=== PATIENT | female | born 1995 | race Two or more races ===

== ENCOUNTER 2020-06-11 22:21 | Emergency (ER) | payer MEDICAID ==
[~2020-06-11] VITALS: Ht 167.6 cm; Wt 78.5 kg
[2020-06-11 22:36] VITALS: BP 122/56
[2020-06-11 23:49] LABS: Albumin 3.8 g/dL (3.4-5.0); BUN/Creatinine Ratio 12.5; Calcium 8.8 mg/dL (8.5-10.1)
[2020-06-11 23:50] LABS: Bilirubin, Total 0.5 mg/dL (0.2-1.0); Total Protein 7.5 g/dL (6.4-8.2)
[2020-06-12 00:22] LABS: Basophils # (auto) 0.2 10 ^3/uL (0-0.2); Basophils % (auto) 1.5 % (0.0-2.0); Eosinophils # (auto) 0.1 10 ^3/uL (0-0.8); Eosinophils % (auto) 0.6 % (0.0-7.0); Hematocrit 27.1 % (36.0-46.0); Hemoglobin 7.6 g/dL (12.2-16.2); Lymphocytes # (auto) 1.6 10 ^3/uL (0.4-5.4); Lymphocytes % (auto) 14.3 % (10.0-50.0); Mean Corpuscular Hemoglobin 16.9 pg (28.0-32.0); Mean Corpuscular Volume 60.3 fL (80.0-100.0); Monocytes # (auto) 0.7 10 ^3/uL (0-1.3); Neutrophils # (auto) 8.6 10 ^3/uL (1.6-8.6); Neutrophils % (auto) 77.6 % (37.0-80.0); Nucleated Red Blood Cells % 0.1 %; Platelet Count (auto) 209 10^3/uL (140-450)
[2020-06-12 00:25] LABS: Red Cell Distribution Width 20.6 % (11.8-14.3)
== END 2020-06-12 01:32 | disposition home or self-care (01) ==
LOC: ER 22:29
DX: K29.70 Gastritis, unspecified, without bleeding (principal); D64.9 Anemia, unspecified
CPT/HCPCS: 36415; 80053; 83690; 85025

== ENCOUNTER 2021-01-01 02:52 | Emergency (ER) | payer MEDICAID ==
[~2021-01-01] VITALS: Ht 167.6 cm; Wt 69.9 kg
[2021-01-01 04:26] LABS: Basophils # (auto) 0 10 ^3/uL (0-0.2); Eosinophils # (auto) 0 10 ^3/uL (0-0.8); Lymphocytes # (auto) 1.1 10 ^3/uL (0.4-5.4); White Blood Cell 12.9 10^3/uL (4.4-10.8)
[2021-01-01 04:31] LABS: Basophils % (auto) 0.1 % (0.0-2.0); Eosinophils % (auto) 0.2 % (0.0-7.0); Hematocrit 38.5 % (36.0-46.0); Hemoglobin 12.3 g/dL (12.2-16.2); Lymphocytes % (auto) 8.2 % (10.0-50.0); Mean Corpuscular Hemoglobin 23.3 pg (28.0-32.0); Monocytes # (auto) 0.6 10 ^3/uL (0-1.3); Neutrophils # (auto) 11.2 10 ^3/uL (1.6-8.6); Neutrophils % (auto) 86.5 % (37.0-80.0); Red Blood Cells 5.27 10^6/uL (4.0-5.20); Red Cell Distribution Width 19.2 % (11.8-14.3)
[2021-01-01 04:33] LABS: Potassium 4.2 mmol/L (3.5-5.1)
[2021-01-01 04:36] LABS: Albumin 3.4 g/dL (3.4-5.0); BUN/Creatinine Ratio 12.8
[2021-01-01 04:38] LABS: Bilirubin, Total 0.6 mg/dL (0.2-1.0); Total Protein 7.5 g/dL (6.4-8.2)
[2021-01-01] MEDS ORDERED: IOHEXOL 300 MG/ML 100ML BOTTLE IJ ONE (06:45)
[2021-01-01 08:04] LABS: Urine Amorphous Crystal MOD /hpf (None Seen); Urine Bacteria NONE SEEN /hpf (None Seen); Urine Blood 3+ /uL (Negative); Urine Specific Gravity 1.023 (1.001-1.035); Urine WBC 34 /hpf (0 - 5)
[2021-01-01] MEDS ORDERED: cefTRIAXone 1GM/50ML D5W 50 ML IV ONE (10:15)
[2021-01-01] MEDS ORDERED: cefTRIAXone SOD 1,000 MG VL ONE (10:52)
[2021-01-01 11:08] VITALS: BP 127/84
== END 2021-01-01 14:39 | disposition home or self-care (01) ==
LOC: ER 02:52
DX: K80.20 Calculus of gallbladder without cholecystitis without obstruction (principal); N39.0 Urinary tract infection, site not specified; E46 Unspecified protein-calorie malnutrition; Z68.24 Body mass index [BMI] 24.0-24.9, adult
CPT/HCPCS: 36415; 74177; 76705; 80053; 81001; 81025; 82150; 83690; 84702; 85025; 96365; 96366; 99285; J0696; Q9967

== ENCOUNTER 2021-01-05 14:00 | Inpatient (IN) | payer MEDICAID ==
[~2021-01-05] VITALS: Ht 167.6 cm; Wt 75.0 kg
[2021-01-05 16:34] LABS: Basophils # (auto) 0.1 10 ^3/uL (0-0.2); Basophils % (auto) 0.5 % (0.0-2.0); Eosinophils # (auto) 0.1 10 ^3/uL (0-0.8); Hematocrit 44.1 % (36.0-46.0); Hemoglobin 13.8 g/dL (12.2-16.2); Lymphocytes % (auto) 8.4 % (10.0-50.0); Mean Corpuscular Hemoglobin 22.9 pg (28.0-32.0); Mean Corpuscular Hgb Conc. 31.3 g/dL (32.0-36.0); Mean Corpuscular Volume 73.3 fL (80.0-100.0); Monocytes # (auto) 0.6 10 ^3/uL (0-1.3); Monocytes % (auto) 5.2 % (0.0-12.0); Neutrophils # (auto) 10.3 10 ^3/uL (1.6-8.6); Neutrophils % (auto) 84.9 % (37.0-80.0); Nucleated Red Blood Cells % 0.1 %; Red Blood Cells 6.01 10^6/uL (4.0-5.20); Red Cell Distribution Width 18.6 % (11.8-14.3); White Blood Cell 12.1 10^3/uL (4.4-10.8)
[2021-01-05 16:53] LABS: Albumin 3.8 g/dL (3.4-5.0); Calcium 10.4 mg/dL (8.5-10.1); Potassium 4.8 mmol/L (3.5-5.1)
[2021-01-05 16:56] LABS: BUN/Creatinine Ratio 4.1; Bilirubin, Total 3.1 mg/dL (0.2-1.0)
[2021-01-05] MEDS ORDERED: SODIUM CHLORIDE 0.9% 1,000 ML IV ONE (19:15)
[2021-01-05] MEDS ORDERED: metroNIDAZOLE 500MG/100ML 100 ML IV ONE (19:15)
[2021-01-05] MEDS ORDERED: CIPROFLOXACIN 400MG/200ML 200 ML IV ONE (19:15)
[2021-01-05] MEDS ORDERED: ONDANSETRON HCL 4 MG/2 ML VIAL IV ONE (20:00)
[2021-01-05] MEDS ORDERED: fentaNYL CITRATE 100 MCG/2 ML VL IV ONE (20:00)
[2021-01-05] MEDS ORDERED: ACETAMINOPHEN 325 MG TAB PO PRN (21:00)
[2021-01-05] MEDS ORDERED: MORPHINE SULFATE INJECTION 2 MG/ML SYRG IV PRN (23:00)
[2021-01-05] MEDS ORDERED: NITROGLYCERIN 0.4 MG SL TAB SL PRN (23:00)
[2021-01-05 23:06] LABS: Urine Bacteria FEW /hpf (None Seen); Urine Blood Negative /uL (Negative); Urine Specific Gravity 1.008 (1.001-1.035); Urine WBC 13 /hpf (0 - 5)
[2021-01-06 02:25] VITALS: BP 113/78
[2021-01-06] MEDS: metroNIDAZOLE 500MG/100ML 100 ML IV SCH ×4 (02:47→21:15)
[2021-01-06] MEDS: D5W/SOD CHLO 0.9% 1,000 ML IV SCH ×2 (02:47→13:07)
[2021-01-06] MEDS: MORPHINE SULFATE 4 MG/ML SYR/VIAL IV PRN ×2 (04:14→08:43)
[2021-01-06] MEDS ORDERED: CHOL20007 PO (04:40)
[2021-01-06] MEDS ORDERED: FERR27TA2 PO (04:40)
[2021-01-06 05:00] VITALS: BP 101/64
[2021-01-06 06:39] LABS: Basophils # (auto) 0 10 ^3/uL (0-0.2); Basophils % (auto) 0.2 % (0.0-2.0); Eosinophils # (auto) 0.1 10 ^3/uL (0-0.8); Hematocrit 37.6 % (36.0-46.0); Lymphocytes # (auto) 1.3 10 ^3/uL (0.4-5.4); Lymphocytes % (auto) 12.8 % (10.0-50.0); Mean Corpuscular Hemoglobin 23.3 pg (28.0-32.0); Mean Corpuscular Volume 73.1 fL (80.0-100.0); Monocytes # (auto) 0.9 10 ^3/uL (0-1.3); Monocytes % (auto) 9.2 % (0.0-12.0); Neutrophils # (auto) 7.7 10 ^3/uL (1.6-8.6); Neutrophils % (auto) 76.8 % (37.0-80.0); Red Blood Cells 5.14 10^6/uL (4.0-5.20); Red Cell Distribution Width 18.3 % (11.8-14.3); White Blood Cell 10.1 10^3/uL (4.4-10.8)
[2021-01-06 06:51] LABS: Albumin 2.9 g/dL (3.4-5.0); Calcium 10.1 mg/dL (8.5-10.1); Potassium 4.1 mmol/L (3.5-5.1)
[2021-01-06 06:55] LABS: BUN/Creatinine Ratio 5.4; Bilirubin, Total 2.9 mg/dL (0.2-1.0); Total Protein 6.3 g/dL (6.4-8.2)
[2021-01-06] MEDS: FAMOTIDINE (10MG/ML) 2ML VL IV SCH (08:42)
[2021-01-06 08:52] VITALS: BP 109/67
[2021-01-06] MEDS: MORPHINE SULFATE INJECTION 2 MG/ML SYRG IV PRN ×3 (13:08→22:34)
[2021-01-06 13:23] VITALS: BP 125/81
[2021-01-06] MEDS: ONDANSETRON HCL 4 MG/2 ML VIAL IV PRN ×3 (13:24→22:34)
[2021-01-06 16:55] VITALS: BP 124/73
[2021-01-06 18:14] LABS: INR 0.99 (0.9-1.15); Partial Thromboplastin Time 24.2 sec (23.6-33.0)
[2021-01-06 22:25] VITALS: BP 103/67
[2021-01-07] MEDS: ONDANSETRON HCL 4 MG/2 ML VIAL IV PRN ×3 (02:40→15:51)
[2021-01-07] MEDS: MORPHINE SULFATE INJECTION 2 MG/ML SYRG IV PRN ×4 (02:40→21:21)
[2021-01-07] MEDS: D5W/SOD CHLO 0.9% 1,000 ML IV SCH ×2 (02:40→13:00)
[2021-01-07 05:21] VITALS: BP 100/64
[2021-01-07] MEDS: metroNIDAZOLE 500MG/100ML 100 ML IV SCH ×3 (06:13→22:16)
[2021-01-07 07:18] LABS: Albumin 2.8 g/dL (3.4-5.0); BUN/Creatinine Ratio 6.9; Bilirubin, Total 1.4 mg/dL (0.2-1.0); Calcium 9.4 mg/dL (8.5-10.1); Total Protein 5.9 g/dL (6.4-8.2)
[2021-01-07 08:30] VITALS: BP 124/68
[2021-01-07] MEDS: FAMOTIDINE (10MG/ML) 2ML VL IV SCH (08:53)
[2021-01-07] MEDS ORDERED: MIDAZOLAM HCL 2MG/2ML 2ml VIAL (1mg/ml) ONE ×2 (09:19→11:50)
[2021-01-07] MEDS ORDERED: fentaNYL CITRATE 100 MCG/2 ML VL ONE ×2 (09:19→11:49)
[2021-01-07] MEDS ORDERED: LIDOCAINE 2%HCL (LOCAL ANESTH.) INJ 20ML MDV ONE ×2 (09:25→09:34)
[2021-01-07] MEDS ORDERED: IODIXANOL 320MG/ML 100ML BTL IV ONE (09:25)
[2021-01-07] MEDS ORDERED: KETOROLAC TROMETH 30 MG/ML 1ML VIAL IV ONE ×2 (10:00→12:00)
[2021-01-07] MEDS ORDERED: diphenhdrAMINE HCL 50 MG/1 ML VL ONE (11:01)
[2021-01-07] MEDS ORDERED: cefTRIAXone 1GM/50ML D5W 50 ML IV ONE (12:30)
[2021-01-07] MEDS ORDERED: HYDROmorphone HCL 2 MG/ML VL IV ONE (15:30)
[2021-01-07 16:30] VITALS: BP 116/75
[2021-01-07 22:00] VITALS: BP 114/69
[2021-01-07] MEDS: HYDROcodone-ACET 5/325MG TAB PO PRN (22:26)
[2021-01-08] MEDS: D5W/SOD CHLO 0.9% 1,000 ML IV SCH ×2 (03:06→15:40)
[2021-01-08] MEDS: MORPHINE SULFATE INJECTION 2 MG/ML SYRG IV PRN ×2 (03:06→08:59)
[2021-01-08 05:00] VITALS: BP 102/69
[2021-01-08] MEDS: metroNIDAZOLE 500MG/100ML 100 ML IV SCH ×3 (06:06→22:21)
[2021-01-08 06:33] LABS: Albumin 2.7 g/dL (3.4-5.0)
[2021-01-08 06:39] LABS: Bilirubin, Direct 1.3 mg/dL (0-0.2); Bilirubin, Total 1.8 mg/dL (0.2-1.0); Total Protein 5.9 g/dL (6.4-8.2)
[2021-01-08] MEDS: ONDANSETRON HCL 4 MG/2 ML VIAL IV PRN (08:57)
[2021-01-08 09:00] VITALS: BP 107/76
[2021-01-08] MEDS: FAMOTIDINE (10MG/ML) 2ML VL IV SCH (09:00)
[2021-01-08] MEDS: cefTRIAXone 1GM/50ML D5W 50 ML IV SCH (09:00)
[2021-01-08] MEDS ORDERED: IODIXANOL 320MG/ML 100ML BTL IV ONE ×2 (12:40)
[2021-01-08] MEDS ORDERED: LIDOCAINE 2%HCL (LOCAL ANESTH.) INJ 20ML MDV ONE ×2 (12:40→14:34)
[2021-01-08] MEDS ORDERED: MIDAZOLAM HCL 2MG/2ML 2ml VIAL (1mg/ml) ONE ×2 (12:41→15:09)
[2021-01-08] MEDS ORDERED: fentaNYL CITRATE 100 MCG/2 ML VL ONE (12:41)
[2021-01-08] MEDS ORDERED: HYDROmorphone HCL 2 MG/ML VL IV PRN (13:00)
[2021-01-08] MEDS ORDERED: HYDROmorphone HCL 2 MG/ML VL ONE (14:26)
[2021-01-08 17:00] VITALS: BP 109/75
[2021-01-08 22:00] VITALS: BP 121/68
[2021-01-08 22:15] VITALS: BP 121/68
[2021-01-09 05:00] VITALS: BP 100/50
[2021-01-09] MEDS: D5W/SOD CHLO 0.9% 1,000 ML IV SCH ×2 (05:08→18:38)
[2021-01-09] MEDS: metroNIDAZOLE 500MG/100ML 100 ML IV SCH ×3 (05:47→22:31)
[2021-01-09 09:00] VITALS: BP 100/61
[2021-01-09 09:37] LABS: Albumin 2.5 g/dL (3.4-5.0); Basophils # (auto) 0 10 ^3/uL (0-0.2); Basophils % (auto) 0.4 % (0.0-2.0); Calcium 9.4 mg/dL (8.5-10.1); Eosinophils # (auto) 0.2 10 ^3/uL (0-0.8); Monocytes # (auto) 0.5 10 ^3/uL (0-1.3)
[2021-01-09 09:39] LABS: Hematocrit 36.4 % (36.0-46.0); Hemoglobin 11.3 g/dL (12.2-16.2); Lymphocytes # (auto) 1.1 10 ^3/uL (0.4-5.4); Lymphocytes % (auto) 16.9 % (10.0-50.0); Mean Corpuscular Hgb Conc. 31.1 g/dL (32.0-36.0); Monocytes % (auto) 7.9 % (0.0-12.0); Neutrophils # (auto) 4.8 10 ^3/uL (1.6-8.6); Neutrophils % (auto) 71.8 % (37.0-80.0); Red Blood Cells 4.93 10^6/uL (4.0-5.20); Red Cell Distribution Width 18.2 % (11.8-14.3); White Blood Cell 6.7 10^3/uL (4.4-10.8)
[2021-01-09 09:40] LABS: BUN/Creatinine Ratio 9.1; Bilirubin, Total 0.9 mg/dL (0.2-1.0); Total Protein 5.5 g/dL (6.4-8.2)
[2021-01-09 09:41] LABS: Mean Corpuscular Volume 73.9 fL (80.0-100.0)
[2021-01-09] MEDS: cefTRIAXone 1GM/50ML D5W 50 ML IV SCH (10:31)
[2021-01-09] MEDS: FAMOTIDINE (10MG/ML) 2ML VL IV SCH (10:32)
[2021-01-09 13:00] VITALS: BP 96/67
[2021-01-09] MEDS ORDERED: MEPERIDINE HCL (25 MG/ML) 1ML VIAL ONE (15:37)
[2021-01-09] MEDS ORDERED: ROCURONIUM 10MG/ML 10ML VIAL IV ONE (15:38)
[2021-01-09] MEDS ORDERED: PROPOFOL 10 MG/ML 20 ML IV ONE (15:38)
[2021-01-09] MEDS ORDERED: ONDANSETRON HCL 4 MG/2 ML VIAL ONE (15:38)
[2021-01-09] MEDS ORDERED: fentaNYL CITRATE 100 MCG/2 ML VL ONE (15:38)
[2021-01-09] MEDS ORDERED: MIDAZOLAM HCL 2MG/2ML 2ml VIAL (1mg/ml) ONE (15:38)
[2021-01-09] MEDS ORDERED: POVIDONE IODINE 10 % TOPICAL OINT 30GM TOP ONE (16:03)
[2021-01-09] MEDS ORDERED: LIDOCAINE W/ EPINEPHRINE 1% 20ML VIAL ONE (16:03)
[2021-01-09] MEDS ORDERED: HYDROmorphone HCL 2 MG/ML VL ONE (16:47)
[2021-01-09] MEDS ORDERED: fentaNYL CITRATE 100 MCG/2 ML VL IV PRN (17:30)
[2021-01-09] MEDS ORDERED: ONDANSETRON HCL 4 MG/2 ML VIAL IV PRN (17:30)
[2021-01-09] MEDS ORDERED: HYDROmorphone HCL 2 MG/ML VL IV PRN ×2 (17:30)
[2021-01-09] MEDS: ONDANSETRON HCL 4 MG/2 ML VIAL IV PRN (20:34)
[2021-01-09 21:58] VITALS: BP 108/69
[2021-01-09] MEDS: SOD CHL 0.45% WITH 20MEQ KCL 1,000 ML IV SCH (22:00)
[2021-01-10] MEDS: HYDROcodone-ACET 5/325MG TAB PO PRN (02:12)
[2021-01-10] MEDS: SOD CHL 0.45% WITH 20MEQ KCL 1,000 ML IV SCH ×3 (03:15→23:15)
[2021-01-10 05:22] VITALS: BP 111/69
[2021-01-10] MEDS: D5W/SOD CHLO 0.9% 1,000 ML IV SCH ×3 (06:33→09:20)
[2021-01-10] MEDS: metroNIDAZOLE 500MG/100ML 100 ML IV SCH ×3 (06:33→21:19)
[2021-01-10 06:54] LABS: Basophils # (auto) 0 10 ^3/uL (0-0.2); Basophils % (auto) 0.1 % (0.0-2.0); Eosinophils # (auto) 0 10 ^3/uL (0-0.8); Eosinophils % (auto) 0.1 % (0.0-7.0); Hemoglobin 8.9 g/dL (12.2-16.2); Lymphocytes # (auto) 1.5 10 ^3/uL (0.4-5.4); Lymphocytes % (auto) 11.5 % (10.0-50.0); Mean Corpuscular Hemoglobin 22.8 pg (28.0-32.0); Mean Corpuscular Hgb Conc. 30.8 g/dL (32.0-36.0); Monocytes # (auto) 0.9 10 ^3/uL (0-1.3); Monocytes % (auto) 6.8 % (0.0-12.0); Neutrophils # (auto) 10.9 10 ^3/uL (1.6-8.6); Neutrophils % (auto) 81.5 % (37.0-80.0); Red Blood Cells 3.91 10^6/uL (4.0-5.20); Red Cell Distribution Width 17.8 % (11.8-14.3); White Blood Cell 13.4 10^3/uL (4.4-10.8)
[2021-01-10 06:57] LABS: Mean Corpuscular Volume 74.2 fL (80.0-100.0)
[2021-01-10 07:20] LABS: Potassium 4.3 mmol/L (3.5-5.1)
[2021-01-10 07:29] LABS: Albumin 2.3 g/dL (3.4-5.0); BUN/Creatinine Ratio 10.4; Bilirubin, Total 0.7 mg/dL (0.2-1.0); Calcium 9.1 mg/dL (8.5-10.1); Total Protein 5.1 g/dL (6.4-8.2)
[2021-01-10 08:30] VITALS: BP 101/63
[2021-01-10] MEDS ORDERED: LEVO-28 PO (08:47)
[2021-01-10] MEDS ORDERED: ONDA-155 PO (08:47)
[2021-01-10] MEDS ORDERED: OMEP20TA PO (08:47)
[2021-01-10] MEDS ORDERED: METR500T PO (08:47)
[2021-01-10] MEDS: cefTRIAXone 1GM/50ML D5W 50 ML IV SCH (12:10)
[2021-01-10] MEDS: FAMOTIDINE (10MG/ML) 2ML VL IV SCH (12:10)
[2021-01-10 13:00] VITALS: BP 116/60
[2021-01-10 16:45] VITALS: BP 120/76
[2021-01-10 22:15] VITALS: BP 96/56
[2021-01-11 05:00] VITALS: BP 98/59
[2021-01-11] MEDS: metroNIDAZOLE 500MG/100ML 100 ML IV SCH (06:37)
[2021-01-11] MEDS: D5W/SOD CHLO 0.9% 1,000 ML IV SCH (06:38)
[2021-01-11 08:44] VITALS: BP 101/58
[2021-01-11] MEDS: cefTRIAXone 1GM/50ML D5W 50 ML IV SCH (09:44)
[2021-01-11] MEDS: FAMOTIDINE (10MG/ML) 2ML VL IV SCH (10:25)
[2021-01-11 11:02] LABS: Albumin 2.6 g/dL (3.4-5.0)
[2021-01-11 11:05] LABS: Basophils # (auto) 0 10 ^3/uL (0-0.2); Eosinophils # (auto) 0.1 10 ^3/uL (0-0.8); Hemoglobin 8.3 g/dL (12.2-16.2); Monocytes # (auto) 0.6 10 ^3/uL (0-1.3); Neutrophils # (auto) 5.6 10 ^3/uL (1.6-8.6)
[2021-01-11 11:06] LABS: Bilirubin, Direct 0.4 mg/dL (0-0.2); Bilirubin, Total 0.5 mg/dL (0.2-1.0)
[2021-01-11 11:07] LABS: Basophils % (auto) 0.4 % (0.0-2.0); Eosinophils % (auto) 1.3 % (0.0-7.0); Hematocrit 26.3 % (36.0-46.0); Lymphocytes # (auto) 1.7 10 ^3/uL (0.4-5.4); Lymphocytes % (auto) 20.6 % (10.0-50.0); Mean Corpuscular Hemoglobin 23.8 pg (28.0-32.0); Mean Corpuscular Hgb Conc. 31.4 g/dL (32.0-36.0); Mean Corpuscular Volume 75.7 fL (80.0-100.0); Monocytes % (auto) 7.3 % (0.0-12.0); Neutrophils % (auto) 70.4 % (37.0-80.0); Nucleated Red Blood Cells % 0.1 %; Red Blood Cells 3.47 10^6/uL (4.0-5.20)
[2021-01-11] MEDS ORDERED: FER325T PO (12:03)
== END 2021-01-11 13:30 | disposition home or self-care (01) | DRG 263 ==
LOC: ER 14:00 → OVERFLOW 22:59 → WEST WING 23:51
PROVIDERS: ADMIT Nurse Practitioner Family; ATTEND Internal Medicine
PROC: B410YZZ Fluoroscopy of Abdominal Aorta using Other Contrast (ICD-10-PCS; 2021-01-07)
PROC: 0FC93ZZ Extirpation of Matter from Common Bile Duct, Percutaneous Approach (ICD-10-PCS; principal; 2021-01-08)
PROC: 0F9430Z Drainage of Gallbladder with Drainage Device, Percutaneous Approach (ICD-10-PCS; 2021-01-08)
PROC: BF10YZZ Fluoroscopy of Bile Ducts using Other Contrast (ICD-10-PCS; 2021-01-08)
PROC: BF40ZZZ Ultrasonography of Bile Ducts (ICD-10-PCS; 2021-01-08)
PROC: 0F7 Hepatobiliary System and Pancreas, Dilation (ICD-10-PCS; 2021-01-08)
PROC: BF101ZZ Fluoroscopy of Bile Ducts using Low Osmolar Contrast (ICD-10-PCS; 2021-01-08)
PROC: 0FT44ZZ Resection of Gallbladder, Percutaneous Endoscopic Approach (ICD-10-PCS; 2021-01-09)
DX: K80.66 Calculus of gallbladder and bile duct with acute and chronic cholecystitis without obstruction (principal); Z20.822 Contact with and (suspected) exposure to COVID-19; Z53.9 Procedure and treatment not carried out, unspecified reason
CPT/HCPCS: 36415; 47532; 71045; 74181; 76000; 76705; 76942; 80053; 80076; 81001; 81025; 82247; 82962; 84702; 85025; 85610; 85730; 86850; 86900; 86901; 87040; 87426; 96365; 96375; 99152; 99153; C1887; G0378; J0696; J1885; J2250; J2405; J2704; J3490; J7042; Q9967

== ENCOUNTER 2025-01-11 09:49 | Outpatient (CLI) | payer OTHER ==
[~2025-01-11 09:49] MED LIST: CHOL20007 PO; FER325T PO; FERR1TAB31 PO; LEVO500T91 PO; METR500T PO; OMEP20TA PO; ONDA-155 PO
[2025-01-11 10:57] LABS: Hematocrit 34.0 % (36.0-46.0); Hemoglobin 10.4 g/dL (12.2-16.2); Mean Corpuscular Hemoglobin 18.9 pg (28.0-32.0); Mean Corpuscular Volume 62.0 fL (80.0-100.0); Nucleated Red Blood Cells % 0.1 %; Urine Amorphous Crystal FEW /hpf (None Seen); Urine Protein, UAD Negative (Negative)
[2025-01-11 11:14] LABS: Alanine Aminotransferase 28 U/L (7-40); Albumin 4.7 g/dL (3.2-4.8); Alkaline Phosphatase 84 U/L (46-116); Anion Gap 8 (5-15); BUN/Creatinine Ratio 21.1 (10.0-20.0); Bilirubin, Total 0.4 mg/dL (0.2-1.0); Blood Urea Nitrogen 15 mg/dL (9-23); Carbon Dioxide 28 mmol/L (20-31); Chloride 106 mmol/L (98-107); Glucose 85 mg/dL (74-106); Potassium 4.3 mmol/L (3.5-5.1); Sodium 142 mmol/L (136-145); Total Protein 7.8 g/dL (5.7-8.2)
[2025-01-11 11:16] LABS: Follicle Stimulating Hormone 4.97 IU/L (SEE BELOW)
[2025-01-11 11:22] LABS: Calcium 10.5 mg/dL (8.7-10.4)
[2025-01-11 12:39] LABS: Triglycerides 77 mg/dL (< 150)
[2025-01-11 12:40] LABS: Cholesterol 151 mg/dL (< 200)
[2025-01-11 12:41] LABS: HDL Cholesterol 55 mg/dL (40-59)
== END 2025-01-11 17:00 | disposition home or self-care (01) ==
LOC: LAB 09:49
PROVIDERS: ATTEND Student in an Organized Health Care Education/Training Program
DX: E83.52 Hypercalcemia (principal); R03.0 Elevated blood-pressure reading, without diagnosis of hypertension; R73.9 Hyperglycemia, unspecified; N92.0 Excessive and frequent menstruation with regular cycle
CPT/HCPCS: 36415; 80053; 80061; 81001; 82306; 83001; 83002; 83036; 83970; 84146; 84403; 84443; 85025

== ENCOUNTER 2025-02-19 06:42 | Outpatient (CLI) | payer OTHER ==
[2025-02-19 07:58] LABS: Chloride 105 mmol/L (98-107); Potassium 3.9 mmol/L (3.5-5.1); Sodium 141 mmol/L (136-145)
[2025-02-19 07:59] LABS: Anion Gap 9 (5-15); Carbon Dioxide 27 mmol/L (20-31)
[2025-02-19 08:01] LABS: Calcium 10.7 mg/dL (8.7-10.4)
[2025-02-19 08:05] LABS: BUN/Creatinine Ratio 11.4 (10.0-20.0); Blood Urea Nitrogen 10 mg/dL (9-23); Glucose 83 mg/dL (74-106)
== END 2025-02-19 17:00 | disposition home or self-care (01) ==
LOC: LAB 06:42
PROVIDERS: ATTEND Student in an Organized Health Care Education/Training Program
DX: E21.3 Hyperparathyroidism, unspecified (principal); R83.8 Other abnormal findings in cerebrospinal fluid
CPT/HCPCS: 36415; 80048; 82378; 86304